=== PATIENT | male | born 1985 | race Caucasian/White ===

== ENCOUNTER 2023-07-21 23:27 | Emergency (ER) | payer SELFPAY ==
[2023-07-21 23:33] VITALS: BP 168/108
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
[2023-07-22 02:58] VITALS: BP 130/80
== END 2023-07-22 03:00 | disposition home or self-care (01) ==
LOC: EMR 23:27
PROVIDERS: EMERGENCY PHYSICIAN Student in an Organized Health Care Education/Training Program; FAMILY PHYSICIAN Family Medicine
DX: S46.011A Strain of muscle(s) and tendon(s) of the rotator cuff of right shoulder, initial encounter (principal); V47.5XXA Car driver injured in collision with fixed or stationary object in traffic accident, initial encounter; R03.0 Elevated blood-pressure reading, without diagnosis of hypertension
CPT/HCPCS: 99283; 71101; 73030

== ENCOUNTER 2024-06-22 22:04 | Emergency (ER) | payer SELFPAY ==
[2024-06-22 22:12] VITALS: BP 160/96
[2024-06-22 22:37] LABS: % Basophils 0.3 % (0-2); % Eosinophils 3.1 % (0-6); % Immature Granulocytes 0.2 % (0-0.5); % Lymphocytes 34.3 % (20.5-51.1); % Monocytes 7.4 % (1.7-9.3); % Neutrophils 54.7 % (42.2-75.2); Absolute Eosinophils 0.3 10^3/uL (0-0.7); Absolute Lymphocytes 3.1 10^3/uL (1.2-3.4); Absolute Monocytes 0.7 10^3/uL (0.1-0.6); Hematocrit 42.2 % (39.0-52.0); Hemoglobin 14.9 g/dL (13.0-18.0); Mean Corp Hgb Conc. 35.3 g/dL (33.0-37.0); Mean Corpuscular Hgb 30.9 pg (27.0-31.0); Mean Corpuscular Volume 87.6 fL (80.0-94.0); Mean Platelet Volume 10.4 fL (7.4-10.4); Nucleated Red Blood Cells % 0 % (-); Platelet Count 304 10^3/uL (130-400); Red Blood Cell Count 4.82 10^6/uL (4.70-6.10); Red Cell Dist. Width 11.8 % (11.5-14.5); White Blood Cell Count 9.1 10^3/uL (4.8-10.8)
[2024-06-22 23:03] LABS: Troponin I < 0.012 ng/ml
[2024-06-22 23:13] LABS: ALT (SGPT) 219 U/L (0-50); AST (SGOT) 76 U/L (17-59); Alkaline Phosphatase 78 U/L (38-126); Blood Urea Nitrogen 30 mg/dl (9-20); Calcium 9.8 mg/dl (8.4-10.2); Carbon Dioxide 21 mmol/L (22-30); Chloride 105 mmol/L (98-107); Glucose 108 mg/dl (70-99); Potassium 4.4 mmol/L (3.5-5.1); Sodium 138 mmol/L (135-145); Total Bilirubin 0.5 mg/dl (0.2-1.3); Total Protein 7.4 g/dl (6.3-8.2); eGFR > 60.00
[2024-06-22 23:42] LABS: Lipase 150 U/L (23-300)
--- NOTE | 2024-06-23 00:57 | ED.GENMED ---
History of Present Illness
General
Chief Complaint: Cardiac Symptoms
Source: patient
Exam Limitations: none
Time Seen by Provider: 06/23/24 00:36
Nursing documentation reviewed up to this point in time: agreed with
History of Present Illness
History of Present Illness:
Patient is a 38 year old male w/ hx blanca thyroiditis presenting to the emergency department for evaluation of multiple complaints. Patient reports feeling generally unwell this evening endorsing mild lightheadedness, dull frontal headache, and
intermittent sharp pain in his left lateral chest. He also notes a sensation of fullness in his neck and difficulty taking a deep breath. Symptoms have mainly resolved by arrival to emergency department although he does endorse a lingering mild
headache and feeling very anxious. Patient denies any tearing back pain or numbness/tingling in extremities.
Patient denies any recent cough or fever.
Patient is aware that he has high blood pressure that is not treated and has been attempting to get appointment with his primary care provider.
Patient does have a family history of coronary artery disease, pulmonary embolism, and stroke.
Past History
Past History
ED Past Medical History: GERD, Hypothyroidism, Psychiatric (anxiety) and Other (chronic sinusitis, paroxysmal episodes of swelling and hives)
ED Past Surgical History: Orthopedic (right knee surgery) and Urological (penile surgery)
Social History
Tobacco: Non-smoker
Alcohol: None
Drug: None
Personal:
Living: alone
Employment: Employed
Family History
Family History: Other (Noncontributory)
Review of Systems
Review of Systems
Allergies reviewed?: Yes
All Other Systems: ROS reviewed and negative except as documented in HPI and ROS
Phy Exam
Physical Exam
Physical Exam:
Vitals: Hypertensive, otherwise vital signs stable. Afebrile
General: Patient is well appearing, no acute distress
Skin: Warm and dry, no rashes or lesions
Head: Normocephalic, atraumatic
Eyes: Sclera nonicteric. EOMs intact. No nystagmus.
Throat: Protecting airway
Neck: Normal ROM, no cervical spine tenderness, no meningismus. No JVD
Cardiac: Regular rate and rhythm, no murmurs. 2+ palpable radial pulses bilaterally
Pulm: Normal respiratory effort, no wheezes, rales, rhonchi heard on exam.
Abdomen: Abdomen soft. No abdominal tenderness.
Extremities: No evidence of cyanosis or edema palpable DP pulses bilaterally
Neuro: AAOx3. Grossly intact.
Psychiatric: Normal affect.
Course
Orders/Labs/Results
Orders:
Orders
06/22/24 22:05
Electrocardiogram (*1) Urgent
Reason for Study: Chest Pain
06/22/24 22:06
EKG- Treatment ONCE
06/22/24 22:28
Complete Blood Count/With Diff Urgent
Comprehensive Metabolic Panel Urgent
Lipase Urgent
Troponin I Urgent
06/22/24 23:22
Add On- LAB Urgent
Tests Added?: LIPASE
06/23/24
Electrocardiogram (*1) Stat
Reason for Study: Chest Pain
06/23/24 01:30
D-Dimer Routine
06/23/24 01:34
Acetaminophen [Tylenol] 650 mg .ROUTE .STK-MED ONE
06/23/24 02:00
Troponin I Routine
06/23/24 02:30
CR Chest - 2 Views Urgent
Reason For Exam: chest pain
Abnormal Lab Results
06/22/24
22:28
Absolute Monos (auto) 0.7 H 10^3/uL
(0.1-0.6)
Carbon Dioxide 21 L mmol/L
(22-30)
BUN 30 H mg/dl
(9-20)
Creatinine 1.4 H mg/dL
(0.7-1.3)
Glucose 108 H mg/dl
(70-99)
AST 76 H U/L
(17-59)
ALT 219 H U/L
(0-50)
06/22/24 22:28
06/22/24 22:28
Vital Signs
Initial and Last Documented VS:
Initial Vital Signs
Temp Pulse Resp BP Pulse Ox
98.6 F 88 17 160/96 98
06/22/24 22:12 06/22/24 22:12 06/22/24 22:12 06/22/24 22:12 06/22/24 22:12
Last Documented Vital Signs
Temp Pulse Resp BP Pulse Ox
98.6 F 88 17 160/96 98
06/22/24 22:12 06/22/24 22:12 06/22/24 22:12 06/22/24 22:12 06/23/24 00:15
MDM/Problems Addressed
Differential Diagnosis Includes:
Not limited to: GERD, chest wall strain, viral illness, acute coronary syndrome, pulmonary embolism, hypertensive emergency, anxiety, etc
MDM/Problems Addressed:
38 y.o male presenting with atypical chest pain somewhat improved by arrival to emergency department. No true exertional or pleuritic component to symptoms. Patient arrives hypertensive otherwise with stable vital signs. On exam patient is mildly
anxious appearing otherwise in no apparent distress. Cardio/pulmonary assessment unremarkable. He has 2+ radial pulses bilaterally. No lower extremity swelling. Plan: cardiac workup including labs, serial troponins, dimer, and chest xray.
Update: Labs without clinically significant abnormalities. Nonspecific LFT elevation note. Cardiac workup negative including nonischemic EKG, serial troponins undetectable x 2, and undetectable d-dimer. CXR without acute abnormalities and no
evidence of widened mediastinum. Patient feeling better on reassessment. Blood pressure elevated although no evidence of end-organ damage. ED workup negative. Do not suspect acute cardio/pulmonary process - feel stable for discharge home with
primary f/u and strict return precautions. May need initiation of anti-hypertensive pharmacotherapy.He will have LFTs repeated with primary. Patient also provided information for [facility] upon discharge.
Chronic conditions affecting care:
Hypertension
Acute Exacerbation and/or Progression of Chronic Illness:
Acutely hypertensive
*Radiology
Radiology exam reviewed: preliminary read by ED provider (CXR reviewed by nh - no acute abnormalities)
*Pulse Oximetry
Patient hypoxic: no
*EKG
Interpreted by ED Provider?: Yes
EKG Intrepretation Date: 06/23/24
Interpretation: normal
Comparison EKG: no comparison EKG present
Heart Rate: 86
Rate: normal
Rhythm: sinus
[place]: normal axis
Interval: normal interval
QRS Pattern: normal QRS
Ischemia: no ischemia
*It Operations Manager Interpretation
Rate: normal
Interpretation: normal
Heart Rate: 86
Rhythm: sinus
*Critical Care Note
Total Time (30-74mins, 75-104mins- exclusive of procedures): Not Applicable
ED Attending Note
-
Portions of this chart may have been created with voice recognition software.� Occasional wrong word or��sound alike� substitutions may have occurred due to the inherent limitations of voice recognition software.
Discharge Plan
Departure
Patient Disposition: Home (Routine Discharge)
Patient with high blood pressure during this ER visit?: Yes
Discharge Problem:
Atypical chest pain
Instructions: Chest Pain (DC), BLOOD PRESSURE
Prescriptions:
No Action
fexofenadine [Valeria] 180 MG tablet
180 mg PO DAILY
levothyroxine 50 MCG tablet
75 mcg PO DAILY
ibuprofen 800 MG tablet
800 mg PO Q6HPRN PRN (Reason: pain) Qty: 14 0RF
tamsulosin [Flomax] 0.4 mg capsule
0.4 mg PO HS Qty: 7 0RF
ondansetron 4 mg tablet,disintegrating
4 mg PO Q8H PRN (Reason: nausea and vomiting) Qty: 7 0RF
famotidine [Pepcid] 20 mg Tablet
20 mg PO DAILY
Referrals:
NONE,* [Family Provider] -
Interventions
Interventions:
*Risk Screen - Suicide Last Done: 06/22/24 22:12
*General Assessment Last Done: 06/23/24 00:15
*Neglect/Abuse Screening Last Done: 06/22/24 22:12
*ED- Fall Risk Assessment Last Done: 06/23/24 00:15
*ED COVID-19 Vaccine History Last Done: 06/23/24 00:15
*Nursing Disposition Last Done: 06/23/24 03:41
ED- Pulmonary Assessment Last Done: 06/23/24 00:15
ED- Cardiac Assessment Last Done: 06/23/24 00:15
Discharge Date and Time
Discharge Date/Time: 06/23/24 03:41
Print Language: SWEDISH
[2024-06-23 00:58] VITALS: BMI 39.2
--- NOTE | 2024-06-23 04:30 | DOWNTIME ---
There was a [employer] Client Mechanical Laboratory Technician Downtime on 06/23/2024 from 0100 to 06/24/2023 at 0420 . Downtime documentation of patient's care, including medication administrations, has been reconciled in the electronic record per guidelines. Refer to the
patient's paper chart under the miscellaneous tab to see printed paper medication records and downtime forms.
[2024-06-23 04:39] LABS: D-Dimer < 0.27 ug/mlFEU (0.00-0.50)
[2024-06-23 04:39] LABS: Troponin I < 0.012 ng/ml
== END 2024-06-23 03:41 | disposition home or self-care (01) ==
LOC: EMR 22:04
PROVIDERS: EMERGENCY PHYSICIAN Emergency Medicine
DX: R51.9 Headache, unspecified (principal); R07.89 Other chest pain; R42 Dizziness and giddiness; I10 Essential (primary) hypertension; E03.9 Hypothyroidism, unspecified
CPT/HCPCS: 99285; 71046; 80053; 83690; 84484; 85025; 85379; 93005

== ENCOUNTER 2025-01-03 16:19 | Emergency (ER) | payer SELFPAY ==
[2025-01-03 16:20] VITALS: BP 144/99
--- NOTE | 2025-01-03 17:09 | ED.GENMED ---
History of Present Illness
General
Chief Complaint: Facial Problem
Source: patient
Exam Limitations: none
Time Seen by Provider: 01/03/25 16:48
History of Present Illness
History of Present Illness:
39-year-old male presents complaining of right sided neck pain that radiates to the ear into the corner of the mouth. He also feels some numbness to the corner of the mouth in the corner of the right eye. He notes a sore throat. When he turns his
head to the right he has more pain and feels as though something is protruding out of his neck. No fevers. No shortness of breath or chest pain. No other complaints at this time
Past History
Past History
ED Past Medical History: GERD, Hypothyroidism, Psychiatric (anxiety) and Other (chronic sinusitis, paroxysmal episodes of swelling and hives)
ED Past Surgical History: Orthopedic (right knee surgery) and Urological (penile surgery)
Social History
Tobacco: Non-smoker
Alcohol: None
Drug: None
Personal:
Living: alone
Employment: Employed
Family History
Family History: Other (Noncontributory)
Phy Exam
Physical Exam
Physical Exam:
General: Well-appearing male no acute respiratory distress
HEENT: Normal cephalic atraumatic pupils equal round reactive to light extract motion intact TMs normal no facial droop patient has intact facial nerve bilaterally
Neck is supple no obvious adenopathy. Posterior pharynx without erythema exudate or asymmetry no trismus or drooling no stridor
Heart: Regular rate and rhythm lungs: Clear no wheeze
Course
Orders/Labs/Results
Orders:
Orders
01/03/25 17:01
CT Neck With Iv Contrast Urgent
Comment:
Reason For Exam: right neck pain/swelling
01/03/25 17:10
Complete Blood Count/With Diff Urgent
Comprehensive Metabolic Panel Urgent
Abnormal Lab Results
01/03/25
17:10
Absolute Monos (auto) 0.7 H 10^3/uL
(0.1-0.6)
ALT 57 H U/L
(0-50)
01/03/25 17:10
01/03/25 17:10
Vital Signs
Initial and Last Documented VS:
Initial Vital Signs
Temp Pulse Resp BP Pulse Ox
97.7 F 75 18 144/99 97
01/03/25 16:20 01/03/25 16:20 01/03/25 16:20 01/03/25 16:20 01/03/25 16:20
Last Documented Vital Signs
Temp Pulse Resp BP Pulse Ox
97.7 F 73 16 150/92 97
01/03/25 16:20 01/03/25 18:03 01/03/25 18:03 01/03/25 18:03 01/03/25 18:03
MDM/Problems Addressed
Differential Diagnosis Includes:
Patient with right sided neck pain. Describes sensation of something protruding from his neck with pain that radiates to his face. Question parotiditis versus lymphadenopathy versus abscess. There is no facial nerve dysfunction to suggest Wang's
palsy. There is no rash to suggest shingles.
Check labs CT pending
*Pulse Oximetry
SaO2: 97
Oxygen Mode of Delivery: Room air
Patient hypoxic: no
*Critical Care Note
Total Time (30-74mins, 75-104mins- exclusive of procedures): Not Applicable
Update Note
Update Note:
CT reviewed shows possible tonsillitis versus pharyngitis but no deep space infection or abscess. Given this finding and sore throat we will cover with Augmentin. Return precautions were given stable for discharge
ED Attending Note
-
Portions of this chart may have been created with voice recognition software.� Occasional wrong word or��sound alike� substitutions may have occurred due to the inherent limitations of voice recognition software.
Discharge Plan
Departure
Patient Disposition: Home (Routine Discharge)
Date of Disposition: 01/03/25
Time of Disposition: 20:08
Patient with high blood pressure during this ER visit?: No
Discharge Problem:
Pharyngitis
Prescriptions:
New
amoxicillin-pot clavulanate 875-125 mg tablet
1 tab PO BID Qty: 14 0RF
No Action
fexofenadine [Valeria] 180 MG tablet
180 mg PO DAILY
levothyroxine 50 MCG tablet
75 mcg PO DAILY
ibuprofen 800 MG tablet
800 mg PO Q6HPRN PRN (Reason: pain) Qty: 14 0RF
tamsulosin [Flomax] 0.4 mg capsule
0.4 mg PO HS Qty: 7 0RF
ondansetron 4 mg tablet,disintegrating
4 mg PO Q8H PRN (Reason: nausea and vomiting) Qty: 7 0RF
famotidine [Pepcid] 20 mg Tablet
20 mg PO DAILY
Referrals:
Jf Lux DO [Family Provider, Family Practice]
Activity Restrictions/Additional Instructions:
Use antibiotic as directed. Return here for worsening symptoms otherwise follow-up with your doctor
Interventions
Interventions:
*Risk Screen - Suicide Last Done: 01/03/25 17:17
*General Assessment Last Done: 01/03/25 17:17
*Neglect/Abuse Screening Last Done: 01/03/25 17:17
*ED- Fall Risk Assessment Last Done: 01/03/25 17:17
*ED COVID-19 Vaccine History Last Done: 01/03/25 17:17
*ED Influenza Vaccine History Last Done: 01/03/25 17:17
ED- Neurological Assessment Last Done: 01/03/25 17:11
ED-Skin Assessment Last Done: 01/03/25 17:11
Discharge Date and Time
Print Language: MAURITIAN
[2025-01-03 17:32] LABS: Hematocrit 44.7 % (39.0-52.0); Hemoglobin 15.4 g/dL (13.0-18.0); Mean Corp Hgb Conc. 34.5 g/dL (33.0-37.0); Mean Corpuscular Volume 89.6 fL (80.0-94.0); Nucleated Red Blood Cells % 0 % (-); Platelet Count 323 10^3/uL (130-400); Red Cell Dist. Width 12.0 % (11.5-14.5)
[2025-01-03 17:45] LABS: ALT (SGPT) 57 U/L (0-50); AST (SGOT) 28 U/L (17-59); Albumin 4.7 g/dl (3.5-5.0); Alkaline Phosphatase 65 U/L (38-126); Blood Urea Nitrogen 18 mg/dl (9-20); Calcium 9.9 mg/dl (8.4-10.2); Carbon Dioxide 24 mmol/L (22-30); Chloride 107 mmol/L (98-107); Glucose 98 mg/dl (70-99); Potassium 4.5 mmol/L (3.5-5.1); Sodium 138 mmol/L (135-145); Total Protein 7.4 g/dl (6.3-8.2); eGFR > 60.00
[2025-01-03 18:03] VITALS: BP 150/92
[2025-01-03 20:12] VITALS: BP 151/92
== END 2025-01-03 20:16 | disposition home or self-care (01) ==
LOC: EMR 16:19
PROVIDERS: Physician Assistant; EMERGENCY PHYSICIAN Emergency Medicine; FAMILY PHYSICIAN Family Medicine
DX: J02.9 Acute pharyngitis, unspecified (principal); K21.9 Gastro-esophageal reflux disease without esophagitis; E03.9 Hypothyroidism, unspecified; F41.9 Anxiety disorder, unspecified
CPT/HCPCS: 99284; 70491; 80053; 85025; Q9967